=== PATIENT | male | born 1995 | race African-American/Black ===

== ENCOUNTER 2023-04-27 17:36 | Emergency (ER) | payer BC ==
[2023-04-27] MEDS ORDERED: Sodium Chloride 0.9% 10 ML Syringe FLUSH PRN (18:33)
[2023-04-27] MEDS ORDERED: Sodium Chloride 0.9% 1,000 ML IV ONE (18:33)
[2023-04-27] MEDS ORDERED: Ondansetron 4 MG/2 ML SDV IVPUSH ONE (18:33)
[2023-04-27 18:59] LABS: EOSINOPHILS PERCENT AUTO 0 (0.8-7.0); HEMOGLOBIN 15.8 gm/dl (13.7-17.5); LYMPHOCYTES ABSOLUTE AUTO 0.51 K/mm3 (1.32-3.57); LYMPHOCYTES PERCENT AUTO 17.8 % (21.8-53.1); MEAN CORPUSCULAR HEMOGLOBIN 28.8 pg (25.7-32.2); MEAN CORPUSCULAR HGB CONC 33.6 g/dl (32.2-35.5); MEAN CORPUSCULAR VOLUME 85.8 fl (79.0-92.2); MEAN PLATELET VOLUME 9.1 fl (9.4-12.3); MONOCYTES ABSOLUTE AUTO 1.05 K/mm3 (0.30-0.82); MONOCYTES PERCENT AUTO 36.7 % (5.3-12.2); NEUTROPHILS PERCENT AUTO 45.5 % (34.0-67.9); PLATELET COUNT,PLT 146 K/mm3 (163-337); RED BLOOD CELL COUNT 5.48 M/mm3 (4.63-6.08); WHITE BLOOD CELL COUNT,WBC 2.86 K/mm3 (4.23-9.07)
[2023-04-27] MEDS ORDERED: Iopamidol 612 MG/ML 100 ML Bottle IVPUSH ONE (19:12)
[2023-04-27 19:20] LABS: ALBUMIN 3.9 g/dl (3.4-5.0); ANION GAP 12.4 (5-15); BILIRUBIN TOTAL 0.6 mg/dL (0.2-1.0); BUN/CREATININE RATIO 9.2 (14-18); CALCIUM 8.7 mg/dL (8.5-10.1); CREATININE 1.2 mg/dL (0.7-1.3); EST CRCL DRUG DOSING (CG) 62.94 mL/min; MAGNESIUM 1.8 mg/dL (1.8-2.4); POTASSIUM,K 4.4 mEq/L (3.5-5.1); PROTEIN TOTAL,TP 7.7 g/dl (6.4-8.2); SLIDE REVIEW ABNORMAL SMEAR
== END 2023-04-27 20:28 | disposition home or self-care (01) ==
LOC: JD.ED 17:36
DX: R10.13 Epigastric pain (principal); R11.2 Nausea with vomiting, unspecified
CPT/HCPCS: 36415; 74177; 80053; 83690; 83735; 85025; 86140; 87449; 96361; 96374; 99284; J2405; J7030; Q9967; G0433